=== PATIENT | female | born 1950 ===

== ENCOUNTER → 2021-07-29 12:40 | Outpatient (BNVA) | payer MEDICARE, SELFPAY | PROVIDERS: Visit Provider Internal Medicine Critical Care Medicine | DX: J67.9 Hypersensitivity pneumonitis due to unspecified organic dust (principal); J96.11 Chronic respiratory failure with hypoxia | CPT/HCPCS: 80053; 85025 ==

== ENCOUNTER → 2021-08-27 09:22 | Outpatient (BNVA) | payer MEDICARE, SELFPAY | PROVIDERS: Visit Provider Internal Medicine Critical Care Medicine | DX: J67.9 Hypersensitivity pneumonitis due to unspecified organic dust (principal) | CPT/HCPCS: 87635 ==

== ENCOUNTER → 2021-12-29 08:42 | Outpatient (BNVA) | payer MEDICARE, SELFPAY | PROVIDERS: Visit Provider Internal Medicine Critical Care Medicine | DX: J67.9 Hypersensitivity pneumonitis due to unspecified organic dust (principal) | CPT/HCPCS: 80053; 85025 ==

== ENCOUNTER 2022-02-03 10:22 | Outpatient (CLI) | payer MEDICARE, SELFPAY ==
--- NOTE | 2022-02-03 13:42 | PFTS_ITS ---
Date of Study:02/03/22 Date of Dictation: MECHANICS: Forced vital capacity (FVC) is reduced. Forced expiratory volume in one second (FEV1) is reduced. FEV1/FVC is normal. FLOW VOLUME LOOP: Narrow. LUNG VOLUMES: Total lung capacity (TLC) is reduced. Residual volume (RV) is reduced. DIFFUSING CAPACITY FOR CARBON MONOXIDE: Moderately reduced. INTERPRETATION: The postbronchodilator spirometry is consistent with severe restriction. There is no significant postbronchodilator response. Lung volumes are consistent with restrictive lung disease. Gas exchange (DLCO) is moderate to severely reduced. MTDD
== END 2022-02-03 10:23 | disposition home or self-care (01) ==
LOC: RT 10:30
PROVIDERS: Visit Provider Internal Medicine Critical Care Medicine
DX: J67.9 Hypersensitivity pneumonitis due to unspecified organic dust (principal)
CPT/HCPCS: 94060; 94726; 94729; J7614

== ENCOUNTER 2022-08-30 14:15 | Outpatient (CLI) | payer MEDICARE, SELFPAY ==
--- NOTE | 2022-08-30 14:00 | CT_ITS ---
WS: [id number] CT CHEST WITHOUT INTRAVENOUS CONTRAST HISTORY: J67.9 - Hypersensitivity pneumonitis due to unspecified pneumonitis. TECHNIQUE: Contiguous 5 mm axial imaging performed on the thorax. Coronal and sagittal reformats are submitted. All CT scans at [facility] use at least one of these dose optimization techniques: automated exposure control; mA and/or kV adjustment per patient size (includes targeted exams where dose is matched to clinical indication); or iterative reconstruction. CONTRAST: None DLP: 492.91 mGy.cm COMPARISON: 04/01/2021 Lungs and central airway: Lungs are mildly decreased. There is significant bilateral reticular nodula r thickening. There are areas of groundglass and mosaic attenuation. Greater involvement of the RIGHT upper lobe in the lung bases. These changes have progressed since 2020. There is no significant chay ycombing at the lung bases. This is predominantly hypersensitivity pattern with septal and intralobul ar reticular thickening. No mass. Mild bronchiectasis. Bronchiectasis in the upper lower lung sebastian. Pleura: No effusions. No significant pleural thickening. No pleural plaque. Heart and pericardium: Mild cardiomegaly. Moderate coronary artery atherosclerotic plaque. Mediastinum and ulysses: There are a few small benign mediastinal and hilar lymph nodes. No enlarged lym ph nodes. Vessels: Mild atherosclerosis aorta. Pulmonary arteries are dilated. Chest wall and lower neck: No soft tissue masses. Upper abdomen: Calcifications associated with the gallbladder. Typical pattern for porcelain gallblad barney. Gallbladder is slightly contracted with no adjacent inflammation. No adrenal mass. Osseous structures: Increase in thoracic kyphosis. CT/CT chest wo con [id number] IMPRESSION: 1. Chronic hypersensitivity pneumonitis. Very little honeycombing, mild bronch iectasis. Predominant pattern is mosaic attenuation and septal/intralobular ret icular thickening. 2. Pulmonary hypertension.
== END 2022-08-30 14:16 | disposition home or self-care (01) ==
PROVIDERS: PCP Nurse Practitioner; Visit Provider Internal Medicine Pulmonary Disease
DX: J67.9 Hypersensitivity pneumonitis due to unspecified organic dust (principal); J30.9 Allergic rhinitis, unspecified; J96.11 Chronic respiratory failure with hypoxia
CPT/HCPCS: 71250

== ENCOUNTER 2022-09-21 09:56 | Outpatient (CLI) | payer MEDICARE, SELFPAY ==
[2022-09-21 10:15] VITALS: BP 140/90
[2022-09-21 10:36] VITALS: PULSE 82; RESP 18; O2SAT 93
[2022-09-21] MEDS: albuterol 2.5 mg/3 mL Neb INHALATION (10:36)
== END 2022-09-21 09:57 | disposition home or self-care (01) ==
PROVIDERS: PCP Nurse Practitioner; Visit Provider Internal Medicine Pulmonary Disease
DX: J67.9 Hypersensitivity pneumonitis due to unspecified organic dust (principal); J30.9 Allergic rhinitis, unspecified; J96.11 Chronic respiratory failure with hypoxia
CPT/HCPCS: 94060; 94618; 94726; 94729; J7613

== ENCOUNTER → 2023-03-24 08:42 | Outpatient (BNVA) | payer MEDICARE, SELFPAY | PROVIDERS: PCP Nurse Practitioner; Visit Provider Internal Medicine Pulmonary Disease | DX: J67.9 Hypersensitivity pneumonitis due to unspecified organic dust (principal); J96.11 Chronic respiratory failure with hypoxia; J30.9 Allergic rhinitis, unspecified; J84.10 Pulmonary fibrosis, unspecified; Z87.891 Personal history of nicotine dependence; Z99.81 Dependence on supplemental oxygen; Z86.16 Personal history of COVID-19 | CPT/HCPCS: 99214 ==

== ENCOUNTER 2023-04-19 15:13 | Outpatient (CLI) | payer MEDICARE, SELFPAY ==
--- NOTE | 2023-04-19 15:30 | CTR_ITS ---
PROCEDURE INFORMATION: Exam: CT Chest Without Contrast; Diagnostic Exam date and time: 04/19/2023 3:35 PM Age: 72 years old Clinical indication: Shortness of breath; Additional info: Hrct for interstitial lung disease TECHNIQUE: Imaging protocol: Diagnostic computed tomography of the chest without contrast. Radiation optimization: All CT scans at this facility use at least one of these dose optimization techniques: automated exposure control; mA and/or kV adjustment per patient size (includes targeted exams where dose is matched to clinical indication); or iterative reconstruction. REPORTING DATA: Count of CT and Cardiac NM exams in prior 12 months: This patient has received [address] and 0 known cardiac nuclear medicine studies in the 12 months prior to the current study. COMPARISON: 1. CT chest con [id number] 08/30/2022 2:[address] chest wo con [id number] 04/01/2021 9:[address] chest wo con [id number] 12/06/2019 12:29 PM RADIATION DOSE METRICS: Total DLP (mGy-cm): 1322.35 FINDINGS: Lungs: There is moderate severity bilateral lung disease characterized by mosaic perfusion with asymmetric patchy geographic areas of reticular and ground-glass opacity, and expiratory air trapping interspersed with regions of relatively normal lung parenchyma. There is moderate traction bronchiectasis without honeycombing in the regions of reticular opacity bilaterally. There is a noncalcified pulmonary nodule in the left lower lobe visible on series 3, image 29 measuring 7 mm. Pleural spaces: There is no pleural effusion or pneumothorax. Heart: There is mild cardiac enlargement. There is no pericardial effusion. Coronary arteries: There is severe coronary artery calcification. Lymph nodes: There are mildly prominent but not frankly pathologically enlarged upper mediastinal nodes. Vasculature: There is mild aortic atherosclerotic disease. Right and left pulmonary arteries are borderline enlarged. Main pulmonary artery is of normal caliber. Gallbladder and bile ducts: Extensive gallbladder mural calcification versus large peripherally calcified stones. There is no sign of cholecystitis. Bones/joints: Bones are unremarkable. Soft tissues: The extrathoracic soft tissues are unremarkable. CT/CT chest con [id number] IMPRESSION: 1. Moderate severity fibrotic interstitial lung disease demonstrates continuous progression since 12/06/2019. The imaging features are typical of chronic hypersensitivity pneumonitis. 2. Gallbladder mural calcification versus peripherally calcified stones. 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 3. Mildly enlarged central pulmonary arteries. Possible pulmonary hypertension. 4. 7 mm left lower lobe pulmonary nodule is stable in size since 12/06/2019. Stable pulmonary nodule(s) for which no further follow-up is recommended. (Reference: Tash) 5. Incidental findings above. REFERENCES: Tash Cohn, et al. Guidelines for Management of Incidental Pulmonary Nodules Detected on CT Images: From the Fleischner Society 2017. Radiology. 2017;284(1):228-243.
== END 2023-04-19 15:14 | disposition home or self-care (01) ==
PROVIDERS: PCP Nurse Practitioner; Visit Provider Internal Medicine Pulmonary Disease
DX: J84.9 Interstitial pulmonary disease, unspecified (principal); K82.9 Disease of gallbladder, unspecified; I28.9 Disease of pulmonary vessels, unspecified; R91.1 Solitary pulmonary nodule
CPT/HCPCS: 71250

== ENCOUNTER → 2023-06-23 09:33 | Outpatient (BNVA) | payer MEDICARE, SELFPAY | PROVIDERS: PCP Nurse Practitioner; Visit Provider Internal Medicine Pulmonary Disease | DX: J67.9 Hypersensitivity pneumonitis due to unspecified organic dust (principal); J96.11 Chronic respiratory failure with hypoxia; J30.9 Allergic rhinitis, unspecified; Z99.81 Dependence on supplemental oxygen; Z87.891 Personal history of nicotine dependence | CPT/HCPCS: 99214 ==

== ENCOUNTER → 2023-06-30 09:32 | Outpatient (BNVA) | payer MEDICARE, SELFPAY | PROVIDERS: PCP Nurse Practitioner; Visit Provider Internal Medicine Pulmonary Disease | DX: J67.9 Hypersensitivity pneumonitis due to unspecified organic dust (principal); J96.11 Chronic respiratory failure with hypoxia | CPT/HCPCS: 80076 ==

== ENCOUNTER → 2023-09-22 09:40 | Outpatient (BNVA) | payer MEDICARE, SELFPAY | PROVIDERS: PCP Nurse Practitioner; Visit Provider Internal Medicine Pulmonary Disease | DX: J67.9 Hypersensitivity pneumonitis due to unspecified organic dust (principal); J96.11 Chronic respiratory failure with hypoxia; J30.9 Allergic rhinitis, unspecified; Z99.81 Dependence on supplemental oxygen; Z87.891 Personal history of nicotine dependence | CPT/HCPCS: 99214 ==

== ENCOUNTER → 2023-11-24 09:21 | Outpatient (BNVA) | payer MEDICARE, SELFPAY | PROVIDERS: PCP Nurse Practitioner; Visit Provider Internal Medicine Pulmonary Disease | DX: J67.9 Hypersensitivity pneumonitis due to unspecified organic dust (principal); J96.11 Chronic respiratory failure with hypoxia; J30.9 Allergic rhinitis, unspecified; Z99.81 Dependence on supplemental oxygen | CPT/HCPCS: 99214 ==

== ENCOUNTER 2024-04-03 09:06 | Outpatient (CLI) | payer MEDICARE, SELFPAY ==
[2024-04-03 09:38] VITALS: PULSE 85; RESP 18; O2SAT 97
[2024-04-03] MEDS: albuterol 2.5 mg/3 mL Neb INHALATION (09:38)
[2024-04-03 09:42] VITALS: PULSE 87
== END 2024-04-03 09:07 | disposition home or self-care (01) ==
LOC: RT 09:06
PROVIDERS: PCP Nurse Practitioner
DX: J67.9 Hypersensitivity pneumonitis due to unspecified organic dust (principal); R94.2 Abnormal results of pulmonary function studies
CPT/HCPCS: 94060; 94729; J7613